=== PATIENT | male | born 1980 | race Two or more races ===

== ENCOUNTER 2016-07-19 16:52 | Emergency (ER) | payer OTHER ==
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
== END 2016-07-19 18:56 | disposition disaster alternative care site (69) ==
LOC: GACC 16:52
PROC: 0RSJXZZ Reposition Right Shoulder Joint, External Approach (ICD-10-PCS; principal; 2016-07-19)
DX: S02.32XA Fracture of orbital floor, left side, initial encounter for closed fracture (principal); S43.014A Anterior dislocation of right humerus, initial encounter; S00.83XA Contusion of other part of head, initial encounter; Y04.0XXA Assault by unarmed brawl or fight, initial encounter; Y92.149 Unspecified place in prison as the place of occurrence of the external cause; R04.0 Epistaxis
CPT/HCPCS: J2270; J7040